=== PATIENT | female | born 1980 | race Two or more races ===

== ENCOUNTER 2018-08-05 11:01 | Emergency (ER) | payer MEDICAID ==
[~2018-08-05] VITALS: Ht 170.2 cm; Wt 84.0 kg
[2018-08-05 12:49] VITALS: BP 137/83
[2018-08-05] MEDS: IBUPROFEN 600MG TABLET PO ONE (12:49)
== END 2018-08-05 14:55 | disposition home or self-care (01) ==
LOC: ER 11:01
DX: S93.402A Sprain of unspecified ligament of left ankle, initial encounter (principal); Z88.0 Allergy status to penicillin; Z98.890 Other specified postprocedural states; Z98.51 Tubal ligation status; W10.1XXA Fall (on)(from) sidewalk curb, initial encounter; Y93.01 Activity, walking, marching and hiking; Y92.89 Other specified places as the place of occurrence of the external cause; Y99.8 Other external cause status
CPT/HCPCS: 73610; 81025; 99283

== ENCOUNTER 2021-11-04 18:07 | Emergency (ER) | payer MEDICAID, OTHER ==
[~2021-11-04] VITALS: Ht 167.6 cm; Wt 68.0 kg
[2021-11-04 22:04] LABS: BASOPHILS % 0.4 % (0.0-2.0); EOSINOPHILS % 1.3 % (0.0-5.0); HEMATOCRIT. 37.7 % (36.0-48.0); HEMOGLOBIN. 12.8 g/dL (12.0-16.0); LYMPHOCYTES % 31.8 % (20.0-50.0); MEAN CORPUSCULAR HEMOGLOBIN 29.7 pg (28.0-32.0); MEAN PLATELET VOLUME 9.1 fl (7.4-10.4); MONOCYTES % 6.7 % (2.0-8.0); NEUTROPHILS % 59.8 % (40.0-76.0); PLATELET 315 x1000/uL (130-400); RED BLOOD CELL COUNT 4.33 mill/uL (4.2-5.4); RED CELL DISTRIBUTION WIDTH 14.1 % (11.6-14.6)
[2021-11-04 22:06] LABS: CHLORIDE 104 mEq/L (98-107)
[2021-11-04] MEDS ORDERED: IBUP-2029 MT (23:22)
[2021-11-04] MEDS ORDERED: BACL-141 MT (23:22)
[2021-11-04 23:38] VITALS: BP 112/75
== END 2021-11-04 23:26 | disposition home or self-care (01) ==
LOC: ER 19:18
DX: M54.9 Dorsalgia, unspecified (principal); Z87.01 Personal history of pneumonia (recurrent); Z98.51 Tubal ligation status; Z98.890 Other specified postprocedural states; Z88.0 Allergy status to penicillin
CPT/HCPCS: 36415; 71045; 74176; 80053; 81025; 85025; 86850; 86900; 93005; 99291

== ENCOUNTER 2024-03-02 20:08 | Emergency (ER) | payer MEDICAID, OTHER ==
[~2024-03-02] VITALS: Ht 167.6 cm; Wt 95.5 kg
[~2024-03-02 20:08] MED LIST: BACL-141 MT; IBUP-2029 MT
[2024-03-02 20:11] VITALS: O2SAT 99
[2024-03-02 20:14] VITALS: O2SAT 99
[2024-03-02 23:00] VITALS: BP 117/67; PULSE 78; RESP 16; TEMP 98.7
[2024-03-02] MEDS: ACETAMINOPHEN 325MG TABLET PO ONE (23:00)
[2024-03-02] MEDS: CYCLOBENZAPRINE 10MG TABLET PO ONE (23:00)
[2024-03-02] MEDS: KETOROLAC 30MG/ML VIAL IM ONE (23:00)
[2024-03-02] MEDS ORDERED: CYCL5TAB3 MT (23:03)
[2024-03-02] MEDS ORDERED: NAPR-679 MT (23:03)
[2024-03-02] MEDS ORDERED: METH4TAB95 MT (23:03)
== END 2024-03-03 00:09 | disposition home or self-care (01) ==
LOC: ER 20:08
DX: M54.9 Dorsalgia, unspecified (principal); M54.10 Radiculopathy, site unspecified; F10.90 Alcohol use, unspecified, uncomplicated; D68.00 Von Willebrand disease, unspecified; Z98.51 Tubal ligation status; Z98.890 Other specified postprocedural states; Z79.1 Long term (current) use of non-steroidal anti-inflammatories (NSAID); Z88.0 Allergy status to penicillin; Y90.9 Presence of alcohol in blood, level not specified
CPT/HCPCS: 99283; 96372; J1885